=== PATIENT | female | born 1935 | race Caucasian/White ===

== ENCOUNTER → 2017-01-06 | Outpatient (CLI) | payer OTHER, MEDICARE | LOC: FIMAGING 10:55 → BMCIMAGING 10:55 | PROVIDERS: ATTEND Emergency Medicine | DX: S09.90XA Unspecified injury of head, initial encounter (principal); S42.022A Displaced fracture of shaft of left clavicle, initial encounter for closed fracture; M19.012 Primary osteoarthritis, left shoulder; M50.321 Other cervical disc degeneration at C4-C5 level; M47.892 Other spondylosis, cervical region ==